=== PATIENT | female | born 1940 | race Caucasian/White ===

== ENCOUNTER 2018-04-24 10:45 | Emergency (ER) | payer MEDICARE ==
[~2018-04-24] VITALS: Ht 160 cm; Wt 96.6 kg
--- NOTE | 2018-04-24 10:55 | NUR ---
Placed in room 3. Placed on stave mill hand, blood pressure machine and pulse oximeter. To gown for exam. Side rails up. Report given to Gerry LEA.
[2018-04-24 10:57] VITALS: BP_SYST 167
[2018-04-24] MEDS ORDERED: ASPIRIN 81 MG TAB.CHEW PO ONE (11:00)
[2018-04-24 11:31] LABS: BASOPHILS # (AUTO) 0.1 K/uL (0.0-0.2); BASOPHILS % (AUTO) 0.8 % (0.0-2.0); EOSINOPHILS # (AUTO) 0.2 K/uL (0.0-0.4); EOSINOPHILS % (AUTO) 1.9 % (0.0-4.0); HEMATOCRIT 26.4 % (36-48); HEMOGLOBIN 8.2 g/dL (12.0-16.0); LYMPHOCYTES # (AUTO) 2.5 K/uL (1.0-5.5); MEAN CORPUSCULAR HEMOGLOBIN 32 pg (27-31); MEAN CORPUSCULAR HGB CONC 31 % (32-36); MEAN CORPUSCULAR VOLUME 103 fL (79.0-98.0); MONOCYTES # (AUTO) 0.4 K/uL (0.0-1.0); MONOCYTES % (AUTO) 4.2 % (1.7-9.3); NEUTROPHILS % (AUTO) 68.1 % (40.0-70.0); PLATELET COUNT (AUTO) 297 K/uL (130-430); RED BLOOD CELL COUNT(AUTO) 2.57 MIL/uL (4.2-6.2); RED CELL DISTRIBUTION WIDTH 23.1 % (9.0-15.0); WHITE BLOOD COUNT (AUTO) 10.2 K/uL (4.8-10.8)
--- NOTE | 2018-04-24 11:40 | NUR ---
Pt c/o chest pressure since yesterday. "feels like a big balloon around my chest and I want to take a deep breath to pop it". +shortness of breath all the time. SOB woke her up twice last night. Pt recieved 162 mg ASA and 3 nitro's by EMS improved chest pressure but not shortness of breath. Denies dizziness. Had headache with 1st dose of nitro but is resolved at this time. Denies n/v.
[2018-04-24] MEDS ORDERED: MORPHINE 2 MG/ML INJ. SYRINGE IVP ONE ×2 (11:45→12:45)
[2018-04-24] MEDS ORDERED: ONDANSETRON HCL 4 MG/2 ML VIAL IVP ONE (11:45)
[2018-04-24 11:51] LABS: ANION GAP 7 (5-15); CALCIUM 8.2 mg/dL (8.4-11.0); CHLORIDE 109 mmol/L (98-107); CREATININE 1.11 mg/dL (0.55-1.30); GLUCOSE 92 mg/dL (70-99); POTASSIUM 4.1 mmol/L (3.5-5.1); SODIUM SERUM 143 mmol/L (136-145); UREA NITROGEN, BLOOD 22 mg/dL (8-21)
[2018-04-24 11:56] LABS: ALANINE AMINOTRANSFERASE 37 U/L (12-78); ALBUMIN 3.1 g/dL (3.4-4.8); ASPARTATE AMINOTRANSFERASE 31 U/L (10-37); CHOLESTEROL 96 mg/dL (<200); HDL CHOLESTEROL 43 mg/dL (>55); INR 1.9 (0.8-1.2); LDL CHOLESTEROL 42 mg/dL (<100); PROTHROMBIN TIME 18.7 SECS (9.5-12.5); TOTAL BILIRUBIN 0.8 mg/dL (0.0-1.0); TRIGLYCERIDES 91 mg/dL (30-150)
--- NOTE | 2018-04-24 12:12 | NUR ---
Pt refused morphine and zofran at this time. ER notified. No new orders recieved.
[2018-04-24] MEDS ORDERED: MORPHINE 4 MG/ML INJ. SYRINGE IVP ONE (12:45)
[2018-04-24] MEDS ORDERED: NITROGLYCERIN 1 INCH (GM) OINT. TP ONE (13:30)
[2018-04-24] MEDS ORDERED: CAPTOPRIL 12.5 MG TABLET PO ONE (13:30)
[2018-04-24] MEDS ORDERED: FUROSEMIDE 40 MG/4 ML VIAL IVP ONE (13:30)
[2018-04-24] MEDS ORDERED: cefTRIAXone 1 GM IVPB PREMIX 50 ML IV ONE (14:45)
[2018-04-24 15:00] VITALS: BP_SYST 97
== END 2018-04-24 16:19 | disposition short-term general hospital (02) ==
LOC: SED 10:45
DX: I13.0 Hypertensive heart and chronic kidney disease with heart failure and stage 1 through stage 4 chronic kidney disease, or unspecified chronic kidney disease (principal); E11.22 Type 2 diabetes mellitus with diabetic chronic kidney disease; N18.9 Chronic kidney disease, unspecified; I48.2 Chronic atrial fibrillation; R07.89 Other chest pain; R11.0 Nausea; E78.5 Hyperlipidemia, unspecified; Z90.710 Acquired absence of both cervix and uterus
CPT/HCPCS: 36415; 71045; 80053; 80061; 82550; 83880; 84484; 85025; 85610; 85730; 87040; 93005; 96365; 96375; 99285; J0696; J1940; J2270; J2405